=== PATIENT | male | born 1980 | race Caucasian/White ===

== ENCOUNTER 2019-12-31 11:23 | Emergency (ER) | payer BC ==
[~2019-12-31] VITALS: Ht 170.2 cm; Wt 74.8 kg
[2019-12-31 11:27] VITALS: BP_SYST 150
[2019-12-31 11:42] VITALS: BP_SYST 150
== END 2019-12-31 11:42 | disposition home or self-care (01) ==
LOC: SED 11:23
DX: R00.2 Palpitations (principal); F41.9 Anxiety disorder, unspecified
CPT/HCPCS: 93005; 99283